=== PATIENT | male | born 1985 | race Caucasian/White ===

== ENCOUNTER 2017-01-20 23:25 | Emergency (ER) | payer OTHER ==
[~2017-01-20] VITALS: Ht 195.6 cm; Wt 90.9 kg
[2017-01-21] VITALS: BP 127/86
[2017-01-21 00:07] LABS: EOSINOPHIL (%) 3.4 % (0-5); EOSINOPHIL COUNT 0.2 K/uL (0-0.3); HEMATOCRIT 42.8 % (38.0-50.0); IMMATURE GRANULOCYTE (%) 0.2 % (0.0-0.7); INSTRUMENT ABS NEUTROPHIL CT 2.5 K/uL; LYMPHOCYTE COUNT 3.1 K/uL (1.0-2.8); MCH 29.5 PG (29.0-34.0); MCHC 33.2 G/DL (30.0-36.0); MEAN PLAT.VOLUME 9.8 uM^3 (9.0-12.4); MONOCYTE (%) 5.8 % (3-12); MONOCYTE COUNT 0.4 K/uL (0-0.8); NEUTROPHIL (%) 40.2 % (45-76); NEUTROPHIL COUNT 2.5 K/uL (1.8-6.4); PLATELET COUNT 246 K/uL (156-360); RBC DIS.WIDTH-CV 12.1 % (11.8-14.6); RBC DIS.WIDTH-SD 39.7 % (39-53); RED BLOOD COUNT 4.81 M/uL (4.00-5.50); WHITE BLOOD COUNT 6.2 K/uL (4.1-10.2)
[2017-01-21 00:22] LABS: TOTAL BILIRUBIN 0.5 mg/dL (0.0-1.0)
[2017-01-21 00:23] LABS: ALKALINE PHOSPHATASE 50 IU/L (3-129)
[2017-01-21 00:26] LABS: DIRECT BILIRUBIN 0.2 mg/dL (0.0-0.3)
== END 2017-01-21 00:12 | disposition home or self-care (01) ==
LOC: EME 23:25
PROVIDERS: Physician Assistant
DX: Z77.21 Contact with and (suspected) exposure to potentially hazardous body fluids (principal); W46.0XXA Contact with hypodermic needle, initial encounter; Y99.0 Civilian activity done for income or pay
CPT/HCPCS: 80076; 85025; 86703; 86704; 86706; 86803; 87340; 99281; 99285